=== PATIENT | female | born 1955 | race Caucasian/White ===

== ENCOUNTER 2017-06-15 08:11 | Outpatient (CLI) | payer BC | END 2017-06-15 20:30 | disposition home or self-care (01) | LOC: SMA 08:11 | PROVIDERS: ATTEND Family Medicine | DX: Z12.31 Encounter for screening mammogram for malignant neoplasm of breast (principal) | CPT/HCPCS: G0202 ==

== ENCOUNTER 2018-07-19 09:24 | Outpatient (CLI) | payer BC | END 2018-07-19 19:10 | disposition home or self-care (01) | LOC: SMA 09:24 | PROVIDERS: ATTEND Family Medicine | DX: Z12.31 Encounter for screening mammogram for malignant neoplasm of breast (principal) | CPT/HCPCS: 77067 ==

== ENCOUNTER 2019-07-24 08:35 | Outpatient (CLI) | payer BC | END 2019-07-24 21:01 | disposition home or self-care (01) | LOC: SMA 08:35 | PROVIDERS: ATTEND Family Medicine | DX: Z12.31 Encounter for screening mammogram for malignant neoplasm of breast (principal) | CPT/HCPCS: 77067 ==

== ENCOUNTER 2020-08-27 12:55 | Outpatient (CLI) | payer BC | END 2020-08-27 21:05 | disposition home or self-care (01) | LOC: SMA 12:55 | PROVIDERS: ATTEND Family Medicine | DX: Z12.31 Encounter for screening mammogram for malignant neoplasm of breast (principal) | CPT/HCPCS: 77067 ==

== ENCOUNTER 2021-10-14 09:40 | Outpatient (CLI) | payer BC, OTHER | END 2021-10-14 19:08 | disposition home or self-care (01) | LOC: SMA 09:40 | PROVIDERS: ATTEND Family Medicine | DX: Z12.31 Encounter for screening mammogram for malignant neoplasm of breast (principal) | CPT/HCPCS: 77067 ==

== ENCOUNTER 2022-10-01 14:51 | Outpatient (CLI) | payer OTHER, MEDICARE | END 2022-10-01 18:52 | disposition home or self-care (01) | LOC: SMA 14:51 | PROVIDERS: ATTEND Family Medicine | DX: Z12.31 Encounter for screening mammogram for malignant neoplasm of breast (principal) | CPT/HCPCS: 77067 ==

== ENCOUNTER 2023-10-07 15:05 | Outpatient (CLI) | payer OTHER, MEDICARE | END 2023-10-07 19:21 | disposition home or self-care (01) | LOC: SMA 15:05 | PROVIDERS: ATTEND Physician Assistant Medical | DX: Z12.31 Encounter for screening mammogram for malignant neoplasm of breast (principal) | CPT/HCPCS: 77067 ==